=== PATIENT | female | born 1945 | race Caucasian/White ===

== ENCOUNTER 2017-03-27 08:02 | Outpatient (CLI) | payer MEDICARE, OTHER ==
--- NOTE | 2017-03-27 19:40 | MRI ---
LUMBAR SPINE MRI WITHOUT CONTRAST 03/27/17 COMPARISON: None. HISTORY: Low back pain radiating down the left leg for several months. TECHNIQUE: Multiplanar and multisequence MR imaging of the lumbar spine provided without contrast. FINDINGS: There is mid lumbar spine levoscoliosis. The sagittal STIR imaging demonstrates no significant focal areas of osseous marrow edema. No anterolisthesis or retrolisthesis. Assuming five lumbar type vertebral bodies, conus medullaris te rminates at L1. T12-L1: There is disc desiccation. There is mild bilateral facet hypertrophy. No significant central canal or neural foraminal stenosis. L1-2: There is mild bilateral facet hypertrophy. Intervertebral disc height and signal intensity appe ars within normal limits. No significant central canal or neural foraminal stenosis noted. L2-3: There is disc space narrowing, disc desiccation and mild disc osteophyte complex with no associ ated central canal stenosis. Bilateral facet and uncovertebral osteophyte formation noted. There is m ild/moderate right sided neural foraminal stenosis. L3-4: There is disc space narrowing, disc desiccation, and anterior osteophyte formation and mild dis c bulge. There is bilateral facet hypertrophy. There is mild central canal stenosis and mild bilatera l neural foraminal stenosis, right greater than left. L4-5: There is disc space narrowing, disc desiccation, and mild disc bulge with no associated central canal stenosis. There is bilateral facet hypertrophy with mild/moderate left neural foraminal stenos is. No significant right neural foraminal stenosis. L5-S1: There is mild disc space narrowing. No central canal stenosis. There is prominent facet hypert rophy on the left. There is fluid within bilateral facet joints. There is mild right and moderate/sev ere left neural foraminal stenosis. Imaged retroperitoneal structures appear grossly unremarkable. IMPRESSION: Lumbar spine levoscoliosis with multilevel degenerative change. There is fluid within the bilateral f acet joints at L5-S1 which may signify instability. Flexion and extension imaging is recommended. The re is severe neural foraminal stenosis on the basis of facet hypertrophy on the left at L5-S1. POS: KELECHI
== END 2017-03-27 08:03 | disposition home or self-care (01) ==
LOC: SCSMRI 08:02
PROVIDERS: ATTEND Orthopaedic Surgery
DX: M47.26 Other spondylosis with radiculopathy, lumbar region (principal); M54.5 Low back pain; M48.07 Spinal stenosis, lumbosacral region; M41.9 Scoliosis, unspecified
CPT/HCPCS: 72148

== ENCOUNTER 2017-04-24 11:18 | Outpatient (CLI) | payer MEDICARE, OTHER ==
--- NOTE | 2017-04-24 13:06 | RAD ---
LUMBAR SPINE FOUR VIEW: HISTORY: Anterior vertebral disk disorder. Chronic low back pain. COMPARISON: None. FINDINGS: Lateral neutral, lateral flexion, lateral extension, and AP views of the lumbar spine are submitted f or interpretation. There is leftward curvature of the lumbar spine. Five lumbar type vertebral bodies. Moderate loss o f disk space height and osteophyte formation at L2-L3 and at L3-L4. There is no significant spondylo listhesis in the neutral position. There is no abnormal motion upon extension or flexion. There are degenerative changes in the posterior elements at L5-S1. IMPRESSION: 1. Degenerative changes of the lumbar spine as above. 2. Levoscoliosis of the lumbar spine. POS: KELECHI
== END 2017-04-24 11:19 | disposition home or self-care (01) ==
LOC: SCSRAD 11:18
PROVIDERS: ATTEND Specialist
DX: M51.17 Intervertebral disc disorders with radiculopathy, lumbosacral region (principal); M47.816 Spondylosis without myelopathy or radiculopathy, lumbar region; M41.9 Scoliosis, unspecified
CPT/HCPCS: 72120

== ENCOUNTER 2017-06-06 13:08 | Outpatient (CLI) | payer MEDICARE, OTHER ==
--- NOTE | 2017-06-06 14:41 | MMO ---
MAMMOGRAM DIGITAL SCREENING BILATERAL: DATE: 06/06/17. HISTORY: A 71-year-old female for routine bilateral screening mammogram. COMPARISON: 06/01/16, 03/19/15, and 04/17/14. TECHNIQUE: Digital mammographic views. Computer-aided detection (CAD) utilized. FINDINGS: There are scattered areas of fibroglandular densities. There is no evidence of suspicious mass, suspicious calcifications, or architectural distortion. The re is no significant interval change since the prior mammogram. IMPRESSION: 1) BIRADS 1- Negative. 2) Recommendation: routine bilateral annual screening mammogram (unless the patient develops suspicio us clinical findings that would warrant earlier imaging follow up). mindi [] POS: ROSITA
== END 2017-06-06 13:09 | disposition home or self-care (01) ==
LOC: SCSMAMMO 13:08
PROVIDERS: ATTEND Family Medicine
DX: Z12.31 Encounter for screening mammogram for malignant neoplasm of breast (principal)
CPT/HCPCS: 77067

== ENCOUNTER 2018-06-11 10:59 | Outpatient (CLI) | payer MEDICARE, OTHER ==
--- NOTE | 2018-06-11 11:55 | MMO ---
BILATERAL DIGITAL SCREENING MAMMOGRAMS: Date: 06/11/18 HISTORY: 72-year-old female presents for digital screening mammogram. COMPARISON: 06/06/17, 06/01/16, 03/19/15, 04/17/14. FINDINGS: This patient's mammogram was interpreted with the assistance of computer-aided detection. Scattered fibroglandular densities are noted bilaterally. There are some stable typically benign calc ifications. Stable bilateral parenchymal density asymmetries. No direct or indirect evidence of malig renata. IMPRESSION: BIRADS 2: Benign Finding(s) Continue routine screening. POS: KELECHI
== END 2018-06-11 11:00 | disposition home or self-care (01) ==
LOC: SCSMAMMO 10:59
PROVIDERS: ATTEND Family Medicine
DX: Z12.31 Encounter for screening mammogram for malignant neoplasm of breast (principal)
CPT/HCPCS: 77067

== ENCOUNTER 2021-04-20 10:03 | Outpatient (CLI) | payer MEDICARE, OTHER | END 2021-04-20 10:04 | disposition home or self-care (01) | LOC: SCSRAD 10:03 | PROVIDERS: ATTEND Family Medicine | DX: R05.3 Chronic cough (principal) | CPT/HCPCS: 71046 ==

== ENCOUNTER 2023-06-01 14:02 | Outpatient (CLI) | payer MEDICARE | END 2023-06-01 14:03 | disposition home or self-care (01) | LOC: SCSMRI 14:02 | PROVIDERS: ATTEND Internal Medicine | DX: C34.31 Malignant neoplasm of lower lobe, right bronchus or lung (principal); I67.89 Other cerebrovascular disease | CPT/HCPCS: 70553 ==

== ENCOUNTER 2023-06-15 14:29 | Outpatient (CLI) | payer MEDICARE, OTHER ==
[2023-06-15 16:11] LABS: Hematocrit 40.4 % (34.9-44.5); Hemoglobin 13.3 g/dL (12.0-15.5); Mean Corpuscular HGB CONC 32.9 g/dL (32.0-36.0); Mean Platelet Volume 11.1 fl (7.4-10.4); Platelet Count 317 10x3/uL (150-450); RBC Distribution Width 13.6 % (11.5-14.5); Red Blood Cell (RBC) Count 4.44 10x6/uL (3.90-5.03); White Blood Cell (WBC) Count 14.6 10x3/uL (3.5-10.5)
[2023-06-15 16:31] LABS: Anion Gap 16 mmol/L (10-20); BUN (Urea Nitrogen) 14 mg/dL (9.8-20.1); Calc. Creatinine Clearance 0 mL/min (70-130); Calcium 9.6 mg/dL (7.8-10.44); Carbon Dioxide 26 mmol/L (23-31); Chloride 101 mmol/L (98-107); Estimated GFR 70; Glucose 103 mg/dL (83-110); Potassium 3.9 mmol/L (3.5-5.1); Sodium 139 mmol/L (136-145)
== END 2023-06-15 14:30 | disposition home or self-care (01) ==
LOC: LABBT 14:29
PROVIDERS: ATTEND Specialist
DX: Z01.818 Encounter for other preprocedural examination (principal); C34.90 Malignant neoplasm of unspecified part of unspecified bronchus or lung; J98.4 Other disorders of lung; J90 Pleural effusion, not elsewhere classified; J98.11 Atelectasis
CPT/HCPCS: 71046; 80048; 85027; 93005; 93010

== ENCOUNTER 2023-06-18 10:50 | Day surgery (SDC) | payer MEDICARE, OTHER ==
[2023-06-15 10:22] VITALS: BMI 27.1
[2023-06-18] MEDS ORDERED: Ketorolac Tromethamine 30 MG (1 mL) VIAL ONE (11:15)
[2023-06-18] MEDS ORDERED: Acetaminophen 500 MG TAB ONE (11:16)
[2023-06-18] MEDS ORDERED: fentaNYL PF 100 MCG/2 ML SYRINGE ONE (11:55)
[2023-06-18] MEDS ORDERED: Propofol 500 MG/50 ML VIAL ONE (11:56)
[2023-06-18] MEDS ORDERED: Bupivacaine 0.25% HCL 30 ML VIAL ONE (11:59)
[2023-06-18] MEDS ORDERED: Lidocaine 1% (PF) 30 ML VIAL ONE (11:59)
[2023-06-18] MEDS ORDERED: EPINEPHrine 1 MG/ML VIAL ONE (11:59)
[2023-06-18] MEDS ORDERED: Sodium Chloride 0.9% 100 ML ONE (12:16)
[2023-06-18] MEDS ORDERED: CEFAZOLIN 2 GM VIAL ONE (12:16)
== END 2023-06-18 14:15 | disposition home or self-care (01) ==
LOC: SDC 10:50
PROVIDERS: ATTEND Specialist
PROC: 05H633Z Insertion of Infusion Device into Left Subclavian Vein, Percutaneous Approach (ICD-10-PCS; principal; 2023-06-18)
PROC: B517ZZA Fluoroscopy of Left Subclavian Vein, Guidance (ICD-10-PCS; 2023-06-18)
DX: C34.31 Malignant neoplasm of lower lobe, right bronchus or lung (principal); I10 Essential (primary) hypertension; E78.00 Pure hypercholesterolemia, unspecified; K21.9 Gastro-esophageal reflux disease without esophagitis; Z90.710 Acquired absence of both cervix and uterus; Z98.890 Other specified postprocedural states; Z79.899 Other long term (current) drug therapy; Z88.8 Allergy status to other drugs, medicaments and biological substances; Z91.048 Other nonmedicinal substance allergy status
CPT/HCPCS: 36561; 71045; C1788; J0171; 80053; 82248; 83615; 84100; 84436; 84443; 84550; 85025; J0665; J1642; J1885; J2001; J2704; J3490

== ENCOUNTER 2023-06-24 22:55 | Inpatient (IN) | payer MEDICARE, OTHER ==
[2023-06-25 00:19] LABS: Hematocrit 38.3 % (36.0-47.0); Manual Diff?? YES; Mean Corpuscular HGB CONC 33.9 g/dL (32.0-36.0); Mean Corpuscular Hemoglobin 30.9 pg (27.0-31.0); Mean Platelet Volume 9.6 fL (7.4-10.4); Platelet Count 337 10x3/uL (130-400); RBC Distribution Width 14.1 % (11.5-14.5); Red Blood Cell (RBC) Count 4.21 mill/uL (4.20-5.40); White Blood Cell (WBC) Count 29.3 10x3/uL (4.8-10.8)
[2023-06-25 00:20] LABS: Delete Auto Diff?? YES
[2023-06-25 00:42] LABS: Band 15 % (5-11); CellaVision Operator ID lab.abc; Lymphocytes 1 % (21-51); Neutrophil 84 % (42-75); Platelet Adequacy Comment Platelets Normal; RBC Morphology Within Normal Limits; Total Cell Count 101
[2023-06-25] MEDS ORDERED: Vancomycin 1 GM/200 ML (FROZEN) BAG ONE (00:46)
[2023-06-25] MEDS ORDERED: Cefepime 2 GM VIAL ONE (00:46)
[2023-06-25] MEDS ORDERED: Acetaminophen 500 MG TAB ONE ×2 (00:46→05:02)
[2023-06-25] MEDS ORDERED: Sodium Chloride 0.9% 100 ML ONE (00:47)
[2023-06-25 00:48] LABS: ALT (SGPT) 25 U/L (8-55); AST (SGOT) 22 U/L (5-34); Albumin 3.6 g/dL (3.4-4.8); Alkaline Phosphatase 77 U/L (40-110); Anion Gap 12 mmol/L (10-20); BUN (Urea Nitrogen) 26 mg/dL (9.8-20.1); Bilirubin, Total 0.6 mg/dL (0.2-1.2); Calc. Creatinine Clearance 0 mL/min (70-130); Calcium 8.9 mg/dL (7.8-10.44); Carbon Dioxide 25 mmol/L (23-31); Chloride 99 mmol/L (98-107); Estimated GFR 56; Glucose 122 mg/dL (83-110); Protein, Total 6.6 g/dL (5.8-8.1); Sodium 132 mmol/L (136-145)
[2023-06-25 00:57] LABS: Magnesium 2.1 mg/dL (1.6-2.6)
[2023-06-25 01:04] LABS: Troponin I Less than 0.010 ng/mL (< 0.028)
[2023-06-25 02:02] LABS: Influenza A by NAA Not Detected (NotDetected); Influenza B by NAA Not Detected (NotDetected); SARS-CoV-2 NAA Rapid Test Not Detected (NotDetected)
[2023-06-25] MEDS ORDERED: Ondansetron PF 4 MG/2 ML Vial IVP PRN (02:54)
[2023-06-25] MEDS ORDERED: Pharmacy to Dose : VANC/ABX'S IVPB PRN (02:58)
[2023-06-25 03:53] LABS: Bacteria/HPF None Seen HPF (None Seen); Bilirubin Negative (Negative); Blood, Urine Negative (Negative); CAUTI Indications for Culture Immunosuppressed; Clarity Clear (Clear); Glucose, Urine (Dipstick) Normal (Negative); Ketone, Urine Negative (Negative); Leukocyte Negative Leu/uL (Negative); Nitrite Negative (Negative); Protein, Urine (Dipstick) 10 mg/dL (Neg-Trace); RBC/HPF 0-3 HPF (0-3); Squamous Epithelial 0-3 HPF (0-3); Urobilinogen Normal mg/dL (Less than 2); WBC/HPF 0-3 HPF (0-3); pH, Urine 6.5 (5.0-9.0)
[2023-06-25 03:54] LABS: Specific Gravity, Urine 1.051 (1.002-1.036)
[2023-06-25 03:55] LABS: Urine Culture Reflex Yes Yes
[2023-06-25 04:45] VITALS: BMI 27.1
[2023-06-25 05:18] LABS: Hematocrit 37.9 % (36.0-47.0); Hemoglobin 12.4 g/dL (12.0-16.0); Manual Diff?? YES; Mean Corpuscular HGB CONC 32.7 g/dL (32.0-36.0); Mean Corpuscular Hemoglobin 30.2 pg (27.0-31.0); Mean Corpuscular Volume 92.4 fl (78.0-98.0); Mean Platelet Volume 9.8 fL (7.4-10.4); Platelet Count 294 10x3/uL (130-400); RBC Distribution Width 14.2 % (11.5-14.5); White Blood Cell (WBC) Count 25.6 10x3/uL (4.8-10.8)
[2023-06-25] MEDS: Acetaminophen 500 MG TAB PO SCH (05:19)
[2023-06-25 05:20] LABS: Delete Auto Diff?? YES
[2023-06-25 05:46] LABS: Anion Gap 12 mmol/L (10-20); BUN (Urea Nitrogen) 26 mg/dL (9.8-20.1); Calc. Creatinine Clearance 49 mL/min (70-130); Calcium 8.7 mg/dL (7.8-10.44); Carbon Dioxide 25 mmol/L (23-31); Chloride 99 mmol/L (98-107); Estimated GFR 56; Glucose 107 mg/dL (83-110); Potassium 4.1 mmol/L (3.5-5.1); Sodium 132 mmol/L (136-145)
[2023-06-25 06:18] LABS: Band 18 % (5-11); CellaVision Operator ID lab.abc; Lymphocytes 2 % (21-51); Neutrophil 80 % (42-75); Platelet Adequacy Comment Platelets Normal; RBC Morphology Within Normal Limits; Total Cell Count 101
[2023-06-25] MEDS ORDERED: Losartan 25 MG TAB PO SCH (09:00)
[2023-06-25] MEDS ORDERED: Vancomycin 1 GM in Sodium Chloride 0.9% 250 ML 250 ML IVPB SCH (09:00)
[2023-06-25] MEDS ORDERED: Non-Formulary Item 1 EACH (Olmesartan Medoxomil [Olmesartan Medoxomil] 40 MG Tablet) PO SCH (09:00)
[2023-06-25] MEDS ORDERED: Amlodipine 5 MG TAB PO SCH (09:00)
[2023-06-25] MEDS: Piperacillin/Tazobactam 3.375 GM in Sodium Chloride 0.9% 100 ML IVPB SCH ×2 (09:12→15:02)
[2023-06-25] MEDS: Lactated Ringer's 1,000 ML IV SCH (09:13)
[2023-06-25] MEDS: Polyethylene Glycol 3350 17 GM Packet PO SCH (09:17)
[2023-06-25] MEDS: Folic Acid 1 MG TAB PO SCH (09:18)
[2023-06-25] MEDS: Potassium Chloride 10 MEQ TAB PO SCH (09:18)
[2023-06-25] MEDS ORDERED: Iopamidol 370 76% 100 ML VIAL ONE (10:43)
[2023-06-25] MEDS: methylPREDNISolone Sod Succ 40 MG VIAL IVP SCH (11:56)
[2023-06-25] MEDS: Acetaminophen 325 MG TAB PO PRN (11:56)
[2023-06-25] MEDS ORDERED: Cefepime 1 GM in Sodium Chloride 0.9% 100 ML IVPB SCH (12:00)
[2023-06-25] MEDS ORDERED: Piperacillin/Tazobactam 4.5 GM in Sodium Chloride 0.9% 100 ML IVPB SCH (12:00)
[2023-06-25] MEDS ORDERED: Prochlorperazine Maleate 5 MG TAB PO PRN (16:04)
[2023-06-25] MEDS: Sodium Chloride 0.9% 1,000 ML IV SCH (17:37)
[2023-06-25] MEDS: Ezetimibe 10 MG TAB PO SCH (21:51)
[2023-06-25] MEDS: Rosuvastatin 5 MG TAB PO SCH (21:51)
[2023-06-26] MEDS ORDERED: Vancomycin 1 GM in Premix 1 BAG IVPB SCH (02:00)
[2023-06-26 06:30] LABS: #Neutrophils 18.8 thou/uL (1.40-6.50); %Basophils 0.2 % (0.0-1.0); %Monocytes 0.2 % (0.0-10.0); %Neutrophils 96.6 % (42.0-75.0); Hemoglobin 11.2 g/dL (12.0-16.0); Mean Corpuscular HGB CONC 32.9 g/dL (32.0-36.0); Mean Corpuscular Hemoglobin 29.7 pg (27.0-31.0); Mean Corpuscular Volume 90.2 fl (78.0-98.0); Platelet Count 223 10x3/uL (130-400); RBC Distribution Width 14.2 % (11.5-14.5); Red Blood Cell (RBC) Count 3.77 mill/uL (4.20-5.40); White Blood Cell (WBC) Count 19.5 10x3/uL (4.8-10.8)
[2023-06-26 06:50] LABS: ALT (SGPT) 23 U/L (8-55); AST (SGOT) 20 U/L (5-34); Albumin 3.1 g/dL (3.4-4.8); Alkaline Phosphatase 79 U/L (40-110); Anion Gap 12 mmol/L (10-20); BUN (Urea Nitrogen) 15 mg/dL (9.8-20.1); Bilirubin, Total 0.5 mg/dL (0.2-1.2); Calc. Creatinine Clearance 64 mL/min (70-130); Calcium 8.9 mg/dL (7.8-10.44); Carbon Dioxide 24 mmol/L (23-31); Chloride 104 mmol/L (98-107); Estimated GFR 77; Globulin 2.9 g/dL (2.4-3.5); Glucose 158 mg/dL (83-110); Potassium 3.9 mmol/L (3.5-5.1); Sodium 136 mmol/L (136-145)
[2023-06-26] MEDS: Clindamycin/D5W 900 MG in Premix 1 BAG IVPB SCH (16:06)
[2023-06-26] MEDS: Penicillin G Potassium 4 MILL.UNITS in Sodium Chloride 0.9% 100 ML IVPB SCH (16:45)
[2023-06-26] MEDS ORDERED: Penicillin G Potassium 4 MILL.UNITS in Sodium Chloride 0.9% 50 ML IVPB SCH (17:00)
[2023-06-26] MEDS: Benzonatate 100 MG CAP PO PRN (23:31)
[2023-06-27 05:13] LABS: #Monocytes 0.1 thou/uL (0.11-0.59); #Neutrophils 13.7 thou/uL (1.40-6.50); %Basophils 0.1 % (0.0-1.0); %Lymphocytes 3.4 % (21.0-51.0); %Monocytes 0.5 % (0.0-10.0); %Neutrophils 94.8 % (42.0-75.0); Hemoglobin 10.1 g/dL (12.0-16.0); Mean Corpuscular HGB CONC 33.7 g/dL (32.0-36.0); Mean Corpuscular Hemoglobin 30.8 pg (27.0-31.0); Mean Corpuscular Volume 91.5 fl (78.0-98.0); Mean Platelet Volume 9.8 fL (7.4-10.4); Platelet Count 207 10x3/uL (130-400); RBC Distribution Width 14.1 % (11.5-14.5); Red Blood Cell (RBC) Count 3.28 mill/uL (4.20-5.40); White Blood Cell (WBC) Count 14.5 10x3/uL (4.8-10.8)
[2023-06-27 05:55] LABS: ALT (SGPT) 21 U/L (8-55); AST (SGOT) 18 U/L (5-34); Albumin 2.9 g/dL (3.4-4.8); Alkaline Phosphatase 67 U/L (40-110); Anion Gap 8 mmol/L (10-20); BUN (Urea Nitrogen) 20 mg/dL (9.8-20.1); Bilirubin, Total 0.3 mg/dL (0.2-1.2); Calc. Creatinine Clearance 71 mL/min (70-130); Calcium 8.5 mg/dL (7.8-10.44); Carbon Dioxide 27 mmol/L (23-31); Chloride 105 mmol/L (98-107); Estimated GFR 88; Globulin 2.7 g/dL (2.4-3.5); Glucose 146 mg/dL (83-110); Potassium 4.3 mmol/L (3.5-5.1); Protein, Total 5.6 g/dL (5.8-8.1); Sodium 136 mmol/L (136-145)
[2023-06-27] MEDS: Saccharomyces boulardii 250 MG CAP PO SCH (15:39)
[2023-06-27] MEDS: Senokot S 8.6-50 MG TAB PO SCH (21:13)
[2023-06-28 05:46] LABS: Hematocrit 30.7 % (36.0-47.0); Hemoglobin 10.2 g/dL (12.0-16.0); Manual Diff?? YES; Mean Corpuscular HGB CONC 33.2 g/dL (32.0-36.0); Mean Corpuscular Hemoglobin 30.4 pg (27.0-31.0); Mean Corpuscular Volume 91.4 fl (78.0-98.0); Mean Platelet Volume 9.8 fL (7.4-10.4); Platelet Count 211 10x3/uL (130-400); RBC Distribution Width 14.5 % (11.5-14.5); Red Blood Cell (RBC) Count 3.36 mill/uL (4.20-5.40); White Blood Cell (WBC) Count 6.3 10x3/uL (4.8-10.8)
[2023-06-28 06:08] LABS: ALT (SGPT) 31 U/L (8-55); AST (SGOT) 26 U/L (5-34); Alkaline Phosphatase 60 U/L (40-110); Anion Gap 10 mmol/L (10-20); BUN (Urea Nitrogen) 18 mg/dL (9.8-20.1); Bilirubin, Total 0.5 mg/dL (0.2-1.2); Calc. Creatinine Clearance 69 mL/min (70-130); Calcium 8.6 mg/dL (7.8-10.44); Carbon Dioxide 26 mmol/L (23-31); Chloride 104 mmol/L (98-107); Estimated GFR 85; Globulin 2.6 g/dL (2.4-3.5); Glucose 82 mg/dL (83-110); Potassium 4.2 mmol/L (3.5-5.1); Protein, Total 5.6 g/dL (5.8-8.1); Sodium 136 mmol/L (136-145)
[2023-06-28 06:24] LABS: Delete Auto Diff?? YES
[2023-06-28 07:10] LABS: Band 3 % (5-11); CellaVision Operator ID LAB.KW3; Eosinophils 1 % (0-10); Lymphocytes 16 % (21-51); Monocytes 3 % (0-10); Neutrophil 77 % (42-75); Platelet Adequacy Comment Platelets Normal; RBC Morphology Within Normal Limits; Total Cell Count 99
[2023-06-28] MEDS: Saccharomyces boulardii 250 MG CAP PO SCH (09:27)
[2023-06-28] MEDS ORDERED: Bisacodyl 5 MG TAB PO PRN (11:04)
[2023-06-28] MEDS ORDERED: cefTRIAXone Sodium 2,000 MG in Syringe 0 ML IVPB SCH (11:30)
[2023-06-28] MEDS: cefTRIAXone\\ROCEPHIN 2 GM in Sodium Chloride 0.9% 100 ML IVPB SCH (12:48)
[2023-06-28] MEDS: Bisacodyl 5 MG TAB PO SCH (12:48)
[2023-06-29] MEDS: Potassium Chloride 10 MEQ TAB PO SCH (08:14)
[2023-06-29 13:07] LABS: #Eosinphils 0.1 thou/uL (0.0-0.7); #Monocytes 0.3 thou/uL (0.11-0.59); #Neutrophils 2.5 thou/uL (1.40-6.50); %Basophils 0.3 % (0.0-1.0); %Eosinophils 1.3 % (0.0-10.0); %Lymphocytes 26.6 % (21.0-51.0); %Monocytes 8.6 % (0.0-10.0); %Neutrophils 62.4 % (42.0-75.0); Hematocrit 36.1 % (36.0-47.0); Hemoglobin 11.9 g/dL (12.0-16.0); Mean Corpuscular Hemoglobin 30.1 pg (27.0-31.0); Mean Corpuscular Volume 91.2 fl (78.0-98.0); Mean Platelet Volume 9.7 fL (7.4-10.4); Platelet Count 203 10x3/uL (130-400); RBC Distribution Width 14.2 % (11.5-14.5); Red Blood Cell (RBC) Count 3.96 mill/uL (4.20-5.40)
[2023-06-30 09:34] VITALS: BP 134/82; TEMP 98.1
== END 2023-06-30 15:22 | disposition home or self-care (01) | DRG 871 ==
LOC: ERS 22:55 → ERHOLD 06-25 02:59 → MSONC 06-25 08:57 → T4-A 06-25 09:04 → MSONC 06-25 13:51
PROVIDERS: ADMIT Student in an Organized Health Care Education/Training Program; ATTEND Internal Medicine
DX: A40.0 Sepsis due to streptococcus, group A (principal); J15.4 Pneumonia due to other streptococci; C34.31 Malignant neoplasm of lower lobe, right bronchus or lung; R04.2 Hemoptysis; E87.1 Hypo-osmolality and hyponatremia; I10 Essential (primary) hypertension; K21.9 Gastro-esophageal reflux disease without esophagitis; Z79.899 Other long term (current) drug therapy; Z98.49 Cataract extraction status, unspecified eye; Z90.710 Acquired absence of both cervix and uterus; Z98.890 Other specified postprocedural states; Z11.52 Encounter for screening for COVID-19; Z79.82 Long term (current) use of aspirin; Z80.42 Family history of malignant neoplasm of prostate; E78.00 Pure hypercholesterolemia, unspecified; Z98.51 Tubal ligation status; Z88.8 Allergy status to other drugs, medicaments and biological substances
CPT/HCPCS: 36415; 71045; 71275; 80053; 81001; 83605; 83735; 83880; 84443; 84484; 85025; 87040; 87070; 87077; 87081; 87086; 87186; 87205; 93005; 96365; 96366; 96367; J0692; J0696; J1642; J2540; J2543; J2920; J3370-JW; J3490; J7050; J7120; Q9967

== ENCOUNTER 2023-07-05 08:46 | Outpatient (CLI) | payer MEDICARE ==
[2023-07-05] MEDS ORDERED: Iopamidol-370 76% 500 ML MDV (1 ML CHARGE) ONE (13:30)
== END 2023-07-05 08:47 | disposition home or self-care (01) ==
LOC: BICCT 08:46
PROVIDERS: ATTEND Internal Medicine
DX: C34.31 Malignant neoplasm of lower lobe, right bronchus or lung (principal); J18.9 Pneumonia, unspecified organism; R05.9 Cough, unspecified; R50.9 Fever, unspecified; S27.331A Laceration of lung, unilateral, initial encounter; J18.1 Lobar pneumonia, unspecified organism; J90 Pleural effusion, not elsewhere classified; J98.4 Other disorders of lung; R91.8 Other nonspecific abnormal finding of lung field
CPT/HCPCS: 71260; Q9967

== ENCOUNTER 2023-07-27 09:28 | Outpatient (CLI) | payer MEDICARE | END 2023-07-27 09:29 | disposition home or self-care (01) | LOC: ULT 09:28 | PROVIDERS: ATTEND Internal Medicine | DX: C34.90 Malignant neoplasm of unspecified part of unspecified bronchus or lung (principal); R94.5 Abnormal results of liver function studies; R79.89 Other specified abnormal findings of blood chemistry; C34.31 Malignant neoplasm of lower lobe, right bronchus or lung; Z79.899 Other long term (current) drug therapy | CPT/HCPCS: 36415; 76705; 80053 ==